=== PATIENT | female | born 1960 | race Caucasian/White ===

== ENCOUNTER 2018-06-26 10:22 | Observation (INO) | payer BC ==
[2018-06-26] MEDS ORDERED: ASPIRIN 81 MG PO STA (10:38)
[2018-06-26] MEDS ORDERED: NITROGLYCERIN OINT 1 INCH/GM PACKET TOPICAL STA (10:38)
--- NOTE | 2018-06-26 10:55 | ED ---
General Adult HPI - General Chief complaint: Chest Pain Stated complaint: chest pain Time Seen by Provider: 06/26/18 10:25 Source: patient, RN notes reviewed Mode of arrival: ambulatory Limitations: no limitations - History of Present Illness Initial comments: This a 57-year-old female presents emergency Department with no significant past medical history. Patient comes in today because she's had a three-day history of intermittent chest pain under the left breast. Patient states the pain does not radiate anywhere it is been an ache when it comes on Lasix 10 and 15 minutes and goes away. Patient states as of today it's been a constant ache with an occasional increase in pain with deep breathing. Patient denies any shortness of breath. Patient denies any diaphoretic episodes. Patient denies any nausea patient patient denies abdominal pain patient denies nausea vomiting diarrhea. Patient denies any lightheadedness dizziness or near syncopal episode. Patient denies any swelling to the legs or calf tenders. Patient denies any recent trips or travel. Eyes any palpitations. - Related Data Home Medications Medication Instructions Recorded Confirmed Aspirin/Acetaminophen/Caffeine 1 tab PO DAILY PRN 06/26/18 06/26/18 [Excedrin Migraine Caplet] Venlafaxine HCl [Effexor XR] 75 mg PO DAILY 06/26/18 06/26/18 Allergies Allergy/AdvReac Type Severity Reaction Status Date / Time hydrocodone [From Vicodin] AdvReac Nausea & Verified 06/26/18 10:32 Vomiting Review of Systems ROS Statement: Those systems with pertinent positive or pertinent negative responses have been documented in the HPI. ROS Other: All systems not noted in ROS Statement are negative. Past Medical History Past Medical History: No Reported History History of Any Multi-Drug Resistant Organisms: None Reported Past Surgical History: Uterine Ablation Past Psychological History: No Psychological Hx Reported Smoking Status: Never smoker Past Alcohol Use History: Occasional Past Drug Use History: None Reported General Exam - General Exam Comments Initial Comments: GENERAL: Patient is well-developed and well-nourished. Patient is nontoxic and well- hydrated and is in mild distress. ENT: Neck is soft and supple. No significant lymphadenopathy is noted. Oropharynx is clear. Moist mucous membranes. Neck has full range of motion without eliciting any pain. EYES: The sclera were anicteric and conjunctiva were pink and moist. Extraocular movements were intact and pupils were equal round and reactive to light. Eyelids were unremarkable. PULMONARY: Unlabored respirations. Good breath sounds bilaterally. No audible rales rhonchi or wheezing was noted. CARDIOVASCULAR: There is a regular rate and rhythm without any murmurs gallops or rubs. Patient 's pain is not reproducible to palpation however with deep breathing the patient does splint ABDOMEN: Soft and nontender with normal bowel sounds. No palpable organomegaly was noted. There is no palpable pulsatile mass. SKIN: Skin is clear with no lesions or rashes and otherwise unremarkable. NEUROLOGIC: Patient is alert and oriented x3. Cranial nerves II through XII are grossly intact. Motor and sensory are also intact. Normal speech, volume and content. Symmetrical smile. MUSCULOSKELETAL: Normal extremities with adequate strength and full range of motion. No lower extremity swelling or edema. No calf tenderness. LYMPHATICS: No significant lymphadenopathy is noted PSYCHIATRIC: Normal psychiatric evaluation. 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 Patient's EKG shows no ST segment elevation or depression or T wave abnormalities are noted. Chest x-ray shows no acute abnormality. Patient states he placed the Nitropaste on her and shortly thereafter her pain subsided. At this point time patient's chest pain-free and having no difficulty breathing. I started the patient heparin because of the intermittent nature of the pain which was consistent with unstable angina. I spoke with the Dr. Zee agreed to accept the patient admitted the patient I wrote admitting orders I continued heparin and aspirin Nitropaste on the floor. I consult to cardiology. - Lab Data Result diagrams: 06/26/18 11:15 06/26/18 11:15 Lab Results 06/26/18 06/26/18 06/26/18 Range/Units 11:15 11:15 11:15 WBC 6.3 (3.8-10.6) k/uL RBC 4.53 (3.80-5.40) m/uL Hgb 13.7 (11.4-16.0) gm/dL Hct 40.0 (34.0-46.0) % MCV 88.3 (80.0-100.0) fL MCH 30.1 (25.0-35.0) pg MCHC 34.1 (31.0-37.0) g/dL RDW 12.9 (11.5-15.5) % Plt Count 247 (150-450) k/uL Neutrophils % 55 % Lymphocytes % 33 % Monocytes % 5 % Eosinophils % 5 % Basophils % 1 % Neutrophils # 3.4 (1.3-7.7) k/uL Lymphocytes # 2.1 (1.0-4.8) k/uL Monocytes # 0.3 (0-1.0) k/uL Eosinophils # 0.3 (0-0.7) k/uL Basophils # 0.0 (0-0.2) k/uL PT (9.0-12.0) sec INR (<1.2) APTT (22.0-30.0) sec D-Dimer (<0.60) mg/L FEU Sodium 141 (137-145) mmol/L Potassium 4.2 (3.5-5.1) mmol/L Chloride 105 (98-107) mmol/L Carbon Dioxide 29 (22-30) mmol/L Anion Gap 7 mmol/L BUN 14 (7-17) mg/dL Creatinine 0.65 (0.52-1.04) mg/dL Est GFR (CKD-EPI)AfAm >90 (>60 ml/min/1.73 sqM) Est GFR (CKD-EPI)NonAf >90 (>60 ml/min/1.73 sqM) Glucose 93 (74-99) mg/dL Calcium 10.0 (8.4-10.2) mg/dL Magnesium 1.8 (1.6-2.3) mg/dL Total Bilirubin 0.6 (0.2-1.3) mg/dL AST 21 (14-36) U/L ALT 23 (9-52) U/L Alkaline Phosphatase 67 (38-126) U/L Total Creatine Kinase 55 (30-135) U/L CK-MB (CK-2) 1.3 (0.0-2.4) ng/mL CK-MB (CK-2) Rel Index 2.4 Troponin I <0.012 (0.000-0.034) ng/mL Total Protein 7.5 (6.3-8.2) g/dL Albumin 4.3 (3.5-5.0) g/dL 06/26/18 Range/Units 11:15 WBC (3.8-10.6) k/uL RBC (3.80-5.40) m/uL Hgb (11.4-16.0) gm/dL Hct (34.0-46.0) % MCV (80.0-100.0) fL MCH (25.0-35.0) pg MCHC (31.0-37.0) g/dL RDW (11.5-15.5) % Plt Count (150-450) k/uL Neutrophils % % Lymphocytes % % Monocytes % % Eosinophils % % Basophils % % Neutrophils # (1.3-7.7) k/uL Lymphocytes # (1.0-4.8) k/uL Monocytes # (0-1.0) k/uL Eosinophils # (0-0.7) k/uL Basophils # (0-0.2) k/uL PT 10.4 (9.0-12.0) sec INR 1.0 (<1.2) APTT 26.8 (22.0-30.0) sec D-Dimer 0.27 (<0.60) mg/L FEU Sodium (137-145) mmol/L Potassium (3.5-5.1) mmol/L Chloride (98-107) mmol/L Carbon Dioxide (22-30) mmol/L Anion Gap mmol/L BUN (7-17) mg/dL Creatinine (0.52-1.04) mg/dL Est GFR (CKD-EPI)AfAm (>60 ml/min/1.73 sqM) Est GFR (CKD-EPI)NonAf (>60 ml/min/1.73 sqM) Glucose (74-99) mg/dL Calcium (8.4-10.2) mg/dL Magnesium (1.6-2.3) mg/dL Total Bilirubin (0.2-1.3) mg/dL AST (14-36) U/L ALT (9-52) U/L Alkaline Phosphatase (38-126) U/L Total Creatine Kinase (30-135) U/L CK-MB (CK-2) (0.0-2.4) ng/mL CK-MB (CK-2) Rel Index Troponin I (0.000-0.034) ng/mL Total Protein (6.3-8.2) g/dL Albumin (3.5-5.0) g/dL Critical Care Time Critical Care Time: Yes Total Critical Care Time: 35 Disposition Clinical Impression: Unstable angina pectoris Disposition: ADMITTED IP TO THIS [facility] Time of Disposition: 12:16
--- NOTE | 2018-06-26 11:35 | XR ---
EXAMINATION TYPE: XR chest 2V DATE OF EXAM: 06/26/2018 COMPARISON: None INDICATION: Chest pain TECHNIQUE: Frontal and lateral views of the chest are obtained. FINDINGS: The heart size is normal. The pulmonary vasculature is normal. The lungs are clear. IMPRESSION: 1. No acute pulmonary process.
[2018-06-26 11:46] LABS: ALT 23 U/L (9-52); AST 21 U/L (14-36); Albumin 4.3 g/dL (3.5-5.0); Alkaline Phosphatase 67 U/L (38-126); Anion Gap 7 mmol/L; Blood Urea Nitrogen 14 mg/dL (7-17); Carbon Dioxide 29 mmol/L (22-30); Chloride 105 mmol/L (98-107); Glucose 93 mg/dL (74-99); Magnesium 1.8 mg/dL (1.6-2.3); Potassium 4.2 mmol/L (3.5-5.1); Sodium 141 mmol/L (137-145); Total Bilirubin 0.6 mg/dL (0.2-1.3); Total Protein 7.5 g/dL (6.3-8.2)
[2018-06-26 11:49] LABS: Basophils % (A) 1 %; Eosinophils # (A) 0.3 k/uL (0-0.7); Eosinophils % (A) 5 %; HGB 13.7 gm/dL (11.4-16.0); Lymphocytes # (A) 2.1 k/uL (1.0-4.8); Lymphocytes % (A) 33 %; MCH 30.1 pg (25.0-35.0); MCHC 34.1 g/dL (31.0-37.0); MCV 88.3 fL (80.0-100.0); Mean Platelet Volume 6.8; Monocytes # (A) 0.3 k/uL (0-1.0); Monocytes % (A) 5 %; Neutrophils # (A) 3.4 k/uL (1.3-7.7); Neutrophils % (A) 55 %; Platelet Count 247 k/uL (150-450); RBC 4.53 m/uL (3.80-5.40); RDW 12.9 % (11.5-15.5); WBC 6.3 k/uL (3.8-10.6)
[2018-06-26 11:55] LABS: Creatine Kinase 55 U/L (30-135)
[2018-06-26 12:02] LABS: D-Dimer 0.27 mg/L FEU (<0.60); Partial Thromboplastin Time 26.8 sec (22.0-30.0); Prothrombin Time 10.4 sec (9.0-12.0)
[2018-06-26 12:07] LABS: Creatine Kinase MB 1.3 ng/mL (0.0-2.4); Troponin I <0.012 ng/mL (0.000-0.034)
[2018-06-26] MEDS ORDERED: NITROGLYCERIN SL TABS 0.4 MG TAB SUBLINGUAL PRN (12:16)
[2018-06-26] MEDS: NITROGLYCERIN OINT 1 INCH/GM PACKET TOPICAL SCH ×2 (18:44→22:50)
[2018-06-26 18:57] LABS: Creatine Kinase 47 U/L (30-135)
[2018-06-26 19:11] LABS: Troponin I <0.012 ng/mL (0.000-0.034)
[2018-06-26] MEDS ORDERED: ASPIRIN-ACET-CAFF 250-250-65MG 1 EACH TAB PO PRN (21:28)
[2018-06-26] MEDS: MAG HYDROX/AL HYDROX/SIMETH 30 ML CUP PO PRN (22:03)
--- NOTE | 2018-06-26 22:11 | HP ---
HISTORY AND PHYSICAL CHIEF COMPLAINTS: Chest pain. HISTORY OF PRESENT ILLNESS: This 57-year-old woman with a past history of GERD, DJD, history of pneumonia, migraine being followed by Dr. Domitila Barnett in the outpatient setting was admitted with chest pain. The patient felt chest pain, felt in the anterior part of the chest radiating to the both sides. Initially dull in character, but sharp when the patient taken respiration and patient came to [facility] and the patient was admitted for further evaluation and treatment. There is no history of fever, rigors. No history of headache, loss of consciousness or seizures. Patient had no history of sweating, palpitation, or any relation to exertion or radiation also. PAST MEDICAL HISTORY: History of GERD, history of DJD, history of pneumonia, history of migraine, history of uterine ablation. MEDICATIONS: 1. Effexor XR 75 mg daily. 2. Excedrin 1 tablet daily p.r.n. ALLERGIES: VICODIN. FAMILY HISTORY: No history of heart disease or strokes in the family. SOCIAL HISTORY: No history of smoking. Occasional alcohol intake. REVIEW OF SYSTEMS: ENT: No diminished hearing or diminished vision. CARDIOVASCULAR: No angina or palpitations. RESPIRATORY: As mentioned earlier. GI no nausea or vomiting. : No dysuria. NERVOUS SYSTEM: No numbness or weakness. ALLERGY/IMMUNOLOGY: No asthma or hayfever. MUSCULOSKELETAL as mentioned earlier. HEMATOLOGY/ONCOLOGY: No history of anemia. ENDOCRINE: No history of diabetes or hypothyroidism. CONSTITUTIONAL: As mentioned earlier. Dermatology: Negative. Rheumatology: Negative. Psychiatry: As mentioned earlier. PHYSICAL EXAMINATION: The patient is alert and oriented x3. Pulse 78, blood pressure 153/83, respirations 16, temperature 98.8, pulse ox 98% on room air. HEENT: Conjunctivae normal. Oral mucosa is moist. Neck is no jugular venous distention. No carotid bruit. No lymph nodes enlargement. Cardiac: S1, S2 muffled. Respirations: Breath sounds diminished in the bases. No rhonchi. No crackles. ABDOMEN: Soft, nontender. No mass palpable. Legs no edema and no swelling. NERVOUS SYSTEM: Higher functions as mentioned earlier. Moves all four extremities. No focal deficits. Lymphatics: No lymph nodes palpable in the neck, axillae or groin. SKIN: No ulcer, rash or bleeding. LABS: CBC and CMP noted. ASSESSMENT: 1. Chest pain, possible unstable angina. 2. Hypertension. 3. History of gastroesophageal reflux disease. 4. Degenerative joint disease. 5. History of pneumonia. 6. Migraines. 7. History of uterine ablation. RECOMMENDATIONS AND DISCUSSION: In this 57-year-old woman who presented with multiple medical problems, we will monitor the patient closely, continue the current medications, management and symptomatic treatment. . Otherwise at this time I recommend resume the home medications. Cardiology consult. Rule out myocardial infarction. Unstable angina protocol. Prognosis guarded because of the multiple complex medical issues. Further recommendations to follow. A copy of dictated forwarded to Dr. Domitila Barnett who is the primary physician. MMODL / IJN: [id number] /
[2018-06-26 23:25] LABS: Creatine Kinase 46 U/L (30-135)
[2018-06-26 23:39] LABS: Creatine Kinase MB 0.9 ng/mL (0.0-2.4); Troponin I <0.012 ng/mL (0.000-0.034)
[2018-06-26 23:48] LABS: Cholesterol 223 mg/dL (<200); HDL Cholesterol 58 mg/dL (40-60); LDL Cholesterol,Calculated 126 mg/dL (0-99); Triglycerides 193 mg/dL (<150)
[2018-06-27] MEDS: NITROGLYCERIN OINT 1 INCH/GM PACKET TOPICAL SCH (03:18)
[2018-06-27] MEDS: MAG HYDROX/AL HYDROX/SIMETH 30 ML CUP PO PRN (05:53)
--- NOTE | 2018-06-27 07:51 | CONS ---
CONSULTATION Mrs. Herbert is a 57-year-old female who presented with symptoms of chest discomfort. The discomfort started on Sunday, was respirophasic in pattern, not associated with any other symptoms, but became more persistent and that is why she came into the emergency room. She denies any recent cough or fever. She denies any wheezing. She denies any unusual physical activity recently. She is average in her exercise tolerance and has no exertional chest discomfort. She has no dizziness or palpitation. No syncope. No PND or orthopnea. No peripheral edema. Her coronary risk factors are negative for hypertension, hyperlipidemia, diabetes. She is a nonsmoker. MEDICATION: Her medications at home include venlafaxine. REVIEW OF SYSTEMS: RESPIRATORY SYSTEM: No recent wheezing or cough. No history of documented asthma, emphysema or bronchitis. GI SYSTEM: No recent GI bleed. No peptic ulcer disease. SYSTEM: No dysuria or hematuria. NERVOUS SYSTEM: No stroke or seizure. PHYSICAL EXAMINATION: Blood pressure 174/90 with the heart rate in the 80s. HEAD: Normocephalic. EYES: Sclerae anicteric. NECK: Good carotid upstroke. No bruit. No jugular venous distention. LUNGS: Clear to auscultation. HEART: Regular rate and rhythm. S1, S2. No S3. No S4. No murmur or rub. ABDOMEN: Soft, nontender. Positive bowel sounds. No organomegaly. EXTREMITIES: No edema. Intact distal pulses. LAB DATA: Lab data revealed troponin less than 0.012 for 3 samples. Cholesterol 223, LDL of 126. Hemoglobin is 13.7. EKG revealed a sinus mechanism, normal axis and intervals, normal electrocardiogram. Chest x-ray shows no acute infiltrate. IMPRESSION: 1. Chest discomfort respirophasic in pattern, atypical for ischemic heart disease. 2. Hypertension, not treated in the past. Patient had the remote history of hypertension, but had not been treated recently. 3. Hyperlipidemia. RECOMMENDATION: I will add to her regimen amlodipine for control of her blood pressure. I would recommend to proceed with a stress echocardiogram and a transthoracic echo and depending on those findings, further recommendation will be made. Thank you for this consult. We will follow with you. MMODL / IJN: [id number] /
[2018-06-27] MEDS ORDERED: VENLAFAXINE HCL ER 75 MG CAP PO SCH (09:00)
[2018-06-27] MEDS ORDERED: amLODIPine 5 MG TAB PO SCH (09:00)
[2018-06-27] MEDS ORDERED: ASPIRIN 325 MG TAB PO SCH (09:00)
[2018-06-27 11:47] VITALS: RESP 18
--- NOTE | 2018-06-27 11:54 | ECHOF ---
Referral Reason: MEASUREMENTS -------- HEIGHT: 162.6 cm WEIGHT: 64.4 kg BP: 176/92 RVIDd: 2.6 cm (< 3.3) IVSd: 0.9 cm (0.6 - 1.1) LVIDd: 3.9 cm (3.9 - 5.3) LVPWd: 1.1 cm (0.6 - 1.1) IVSs: 1.4 cm LVIDs: 2.1 cm LVPWs: 1.1 cm LA Diam: 3.0 cm (2.7 - 3.8) LAESV Index (A-L): 19.42 ml/m Ao Diam: 2.8 cm (2.0 - 3.7) AV Cusp: 1.6 cm (1.5 - 2.6) LA Diam: 2.7 cm (2.7 - 3.8) MV EXCURSION: 15.792 mm (> 18.000) MV EF SLOPE: 45 mm/s (70 - 150) EPSS: 0.2 cm MV E Rigo: 0.75 m/s MV DecT: 215 ms MV A Rigo: 0.81 m/s MV E/A Ratio: 0.93 RAP: 5.00 mmHg RVSP: 17.13 mmHg FINDINGS -------- Sinus rhythm. This was a technically good study. LV size, wall thickness and systolic function are normal, with an EF greater than 55%. The left ariel tricular size is normal. The right ventricle is normal in size. The left atrial size is normal. Normal LA size by volume 22+/-6 ml/m2. The right atrial size is normal. The aortic valve is trileaflet, and appears structurally normal. No aortic stenosis or regurgitation. There is no evidence of aortic regurgitation. Mild mitral regurgitation is present. Mild prolapse of the posterior mitral valve leaflet. Mild tricuspid regurgitation present. Right ventricular systolic pressure is normal at < 35 mmHg. The right ventricular systolic pressure, as measured by Doppler, is 17.13mmHg. There is no pulmonic regurgitation present. The aortic root size is normal. There is no pericardial effusion. CONCLUSIONS -------- 1. Sinus rhythm. 2. This was a technically good study. 3. LV size, wall thickness and systolic function are normal, with an EF greater than 55%. 4. The left ventricular size is normal. 5. The left atrial size is normal. 6. The aortic valve is trileaflet, and appears structurally normal. No aortic stenosis or regurgitati on. 7. Mild mitral regurgitation is present. 8. Mild prolapse of the posterior mitral valve leaflet. 9. Mild tricuspid regurgitation present. 10. Right ventricular systolic pressure is normal at < 35 mmHg. 11. There is no pulmonic regurgitation present. 12. The aortic root size is normal. 13. There is no pericardial effusion. [employer] [employer]: Oralia To RDCS
--- NOTE | 2018-06-27 13:06 | ECHOS ---
STRESS ECHOCARDIOGRAM DATE OF SERVICE: 06/27/2018 INDICATIONS: Chest pain. MEDICATIONS: Venlafaxine. BASELINE HEART RATE: 71 BASELINE BLOOD PRESSURE: 198/90 MAXIMUM HEART RATE: 149 MAXIMUM BLOOD PRESSURE: 202/86 85% MPHR: 140 100% MPHR: 165 METS: 10.3 MAXIMUM STAGE REACHED: III TOTAL EXERCISE TIME: 9 minutes CLINICAL INFORMATION: Baseline rhythm is sinus mechanism, rate of 81, normal axis and intervals, rare PVCs. Baseline blood pressure 198/90 mmHg. Patient exercised on Junito protocol for 9 minutes reaching peak rate of 149 beats per minute which is equal to 90% maximum predicted heart rate. Peak blood pressure 202/86 mmHg. Test was terminated secondary to fatigue. There was no chest pain. Electrocardiograph monitoring revealed no evidence of diagnostic ischemic ST deviation. Baseline echocardiogram revealed normal wall thickness and motion. At peak exercise, there was normal wall motion augmentation with no hypokinesis or dyskinesis. CONCLUSION: 1. Good exercise tolerance with normal electrocardiograph response to exercise and rare PVCs. 2. Normal stress echocardiogram with no evidence of stress induced ischemia. MMODL / IJN: [id number] /
[2018-06-27 15:12] VITALS: BP 130/98; PULSE 104; TEMP 98.7
--- NOTE | 2018-06-27 23:44 | DS ---
DISCHARGE SUMMARY DATE OF ADMISSION: 06/26/2018. DATE OF DISCHARGE: 06/27/2018. FINAL DIAGNOSES: 1. Anterior chest wall pain, possible exacerbation of gastroesophageal reflux disease. 2. Essential hypertension, new diagnosis. HOSPITAL COURSE: This patient presents with lower central sternal chest pain, intermittent. Does get occasional heartburn. Drinks about 5 drinks a week. Some help from Maalox when she was given it here. Troponins were negative. A 2D echo was unremarkable, preserved LV function. Stress echocardiogram negative for ischemia. EKG was unremarkable. Seen by Dr. Gavin from Cardiology, [place] to be discharged. PHYSICAL EXAMINATION: Temperature 98.3, pulse 76, respiratory rate 18, blood pressure 164/98, pulse ox 98% on room air. Lungs are clear. Cardiovascular, 1st and 2nd sounds normal. CONSULTATIONS: Dr. Gavin from Cardiology. DISCHARGE MEDICATIONS: 1. Effexor XR 75 mg p.o. daily. 2. Pepcid 20 mg p.o. b.i.d. 3. Zestoretic 04/26.5 one tab p.o. b.i.d. FOLLOWUP: 1. Follow up with Dr. Domitila Barnett in 1 week. 2. Follow up with Dr. Shanks in 1 week for a possible EGD. Discussion and discharge planning more than 35 minutes. MMODL / IJN: [id number] /
== END 2018-06-27 17:55 | disposition home or self-care (01) ==
LOC: EC 10:22 → 1SOBS 12:18
PROVIDERS: ADMIT Hospitalist; ATTEND Hospitalist
DX: R07.89 Other chest pain (principal); I10 Essential (primary) hypertension; E78.5 Hyperlipidemia, unspecified; M19.90 Unspecified osteoarthritis, unspecified site; K21.9 Gastro-esophageal reflux disease without esophagitis; G43.909 Migraine, unspecified, not intractable, without status migrainosus; Z79.899 Other long term (current) drug therapy; Z88.5 Allergy status to narcotic agent; Z87.01 Personal history of pneumonia (recurrent)
CPT/HCPCS: 99291; 36415; 94760; 93306; 93351; 85379; 80061; 80053; 82550; 82553; 83735; 84484; 85025; 85610; 85730; 71046; G0378 ×2

== ENCOUNTER 2018-08-02 07:40 | Day surgery (SDC) | payer BC ==
[2018-07-31 11:56] VITALS: BMI 26.5
[2018-08-02 08:15] VITALS: RESP 16; TEMP 98.7
[2018-08-02] MEDS ORDERED: LACTATED RINGERS 1,000 ML IV ONE (08:24)
[2018-08-02] MEDS ORDERED: fentaNYL (PF) 50 MCG/ML 2 ML AMP ONE (08:57)
[2018-08-02] MEDS ORDERED: PROPOFOL 10 MG/ML 20 ML VIAL IV ONE (08:57)
[2018-08-02] MEDS ORDERED: MIDAZOLAM 2 MG/2 ML VIAL ONE (08:57)
[2018-08-02 09:29] VITALS: BP 123/79; PULSE 83
--- NOTE | 2018-08-02 09:41 | P.PCN ---
Date of Procedure: 08/02/18 Procedure(s) Performed: BRIEF HISTORY: Patient is a 58-year-old, pleasant, white female, scheduled for an upper endoscopy as a part of evaluation of atypical chest pain for the last 1 month duration.. PROCEDURE PERFORMED: Esophagogastroduodenoscopy with biopsy PREOPERATIVE DIAGNOSIS: Atypical chest pain. IV sedation per anesthesia. PROCEDURE: After informed consent was obtained, the patient was brought into the endoscopy unit. IV sedation was administered by Anesthesia under continuous monitoring. Initially the Olympus GIF-140 video endoscope was inserted into the mouth. Esophagus intubated without any difficulty. It was gradually advanced into the stomach and duodenum and carefully examined. The bulb and the second part of the duodenum appeared normal. The scope at this time was withdrawn to the stomach, adequately insufflated with air, and upon careful examination, mucosa of the antrum, had mild gastritis and biopsies were done from this area. The body, cardia and the fundus appeared normal. The scope was then withdrawn into the esophagus. The GE junction was located at 39 cm from the incisors. The esophagus appeared normal. There were no erosions or ulcerations seen , biopsies were done from the distal esophagus and the patient tolerated the procedure well. IMPRESSION: 1. Mild antral gastritis. 2. Normal-appearing esophagus with no evidence of esophagitis. RECOMMENDATIONS: The findings of this examination were discussed with the patient as well as a family. She was advised to continue with Pepcid 20 mg daily and follow antireflux measures..
== END 2018-08-02 10:12 | disposition home or self-care (01) ==
LOC: ORWHC2ENDO 07:40
PROVIDERS: ATTEND Internal Medicine Gastroenterology
DX: K29.50 Unspecified chronic gastritis without bleeding (principal); I10 Essential (primary) hypertension; G43.909 Migraine, unspecified, not intractable, without status migrainosus; M19.90 Unspecified osteoarthritis, unspecified site; K21.9 Gastro-esophageal reflux disease without esophagitis; Z88.5 Allergy status to narcotic agent; Z79.899 Other long term (current) drug therapy
CPT/HCPCS: 88305; 43239; J2250; J3010; J2704

== ENCOUNTER 2021-09-09 10:01 | Day surgery (SDC) | payer BC ==
[2021-09-07 12:28] VITALS: BMI 26.5
[~2021-09-09 10:01] MED LIST: LACTATED RINGERS 1,000 ML IV SCH
[2021-09-09 10:32] VITALS: TEMP 97.9
[2021-09-09] MEDS ORDERED: LACTATED RINGERS 1,000 ML IV ONE (10:32)
[2021-09-09] MEDS ORDERED: LIDOCAINE 1% INJ 10MG/ML (20 ML MDV) ONE (10:55)
[2021-09-09] MEDS ORDERED: PROPOFOL 10 MG/ML 20 ML VIAL IV ONE (10:55)
--- NOTE | 2021-09-09 11:15 | P.PCN ---
Date of Procedure: 09/09/21 Procedure(s) Performed: BRIEF HISTORY: Patient is a 61-year-old pleasant white female scheduled for an elective colonoscopy as a part of screening for colon cancer. PROCEDURE PERFORMED: Colonoscopy with biopsy . PREOPERATIVE DIAGNOSIS: .Screening for colon cancer IV sedation per Anesthesia. PROCEDURE: After informed consent was obtained, the patient, was brought into the endoscopy unit. IV sedation was administered by Anesthesia under continuous monitoring. Digital rectal examination was normal. Initially the Olympus CF-160 flexible video colonoscope was then inserted in the rectum, gradually advanced into the cecum without any difficulty. Careful examination was performed as the scope was gradually being withdrawn. Ileocecal valve and the appendiceal orifice were visualized and appeared normal. Prep was excellent. Mucosa of the cecum, appeared normal. In the ascending colon there was a 3 mm polyp that was removed by cold biopsy. Rest of the ascending colon, transverse colon, descending colon, sigmoid colon, and rectum appeared normal. Retroflexion was performed in the rectum and no lesions were seen. The patient tolerated the procedure well. IMPRESSION: 3 mm ascending colon polyp status post biopsy Rest of the colon appeared normal RECOMMENDATIONS: Findings of this examination were discussed with the patient .as well as her family. She was advised to follow with the biopsy results. If the biopsy is adenoma she can have a repeat colonoscopy in 5 years
[2021-09-09 11:33] VITALS: BP 122/78; PULSE 79; RESP 16
== END 2021-09-09 12:08 | disposition home or self-care (01) ==
LOC: ORWHC2ENDO 10:01
PROVIDERS: ATTEND Internal Medicine Gastroenterology
DX: Z12.11 Encounter for screening for malignant neoplasm of colon (principal); E78.5 Hyperlipidemia, unspecified; I10 Essential (primary) hypertension; K21.9 Gastro-esophageal reflux disease without esophagitis; F32.A Depression, unspecified
CPT/HCPCS: 45380; 88305; J2001; J2704